=== PATIENT | male | born 1955 | race Caucasian/White ===

== ENCOUNTER → 2023-08-29 | Day surgery (SDC) | payer MEDICARE ==
[~2023-08-29] VITALS: Ht 180.3 cm; Wt 81.6 kg
[~2023-08-29] MED LIST: BENTYL20 MG PO
[2023-08-29 13:05] VITALS: BP 143/60
[2023-08-29 13:58] VITALS: BP 144/78
[2023-08-29 14:13] VITALS: BP 137/70
[2023-08-29 14:26] VITALS: BP 147/70
== END | disposition home or self-care (01) ==
LOC: SDC 08-27 12:30
PROVIDERS: ATTEND Ophthalmology
DX: H25.811 Combined forms of age-related cataract, right eye (principal)

== ENCOUNTER → 2023-10-03 | Day surgery (SDC) | payer MEDICARE ==
[~2023-10-03] VITALS: Ht 180.3 cm; Wt 81.6 kg
[2023-10-03 13:41] VITALS: BP 141/66
[2023-10-03 14:53] VITALS: BP 144/70
[2023-10-03 15:08] VITALS: BP 133/67
[2023-10-03 15:23] VITALS: BP 144/70
== END | disposition home or self-care (01) ==
LOC: SDC 10-01 08:45
PROVIDERS: ATTEND Ophthalmology
DX: H25.812 Combined forms of age-related cataract, left eye (principal); Z98.818 Other dental procedure status